=== PATIENT | female | born 1970 | race Two or more races ===

== ENCOUNTER 2023-01-24 11:03 | Emergency (ER) | payer OTHER ==
[~2023-01-24] VITALS: Ht 160 cm; Wt 85.7 kg
[2023-01-24] MEDS ORDERED: NORVASC5 MG PO (11:25)
[2023-01-24] MEDS ORDERED: HORIZANT300 MG PO (11:25)
[2023-01-24] MEDS ORDERED: PROAIR RESPICL90 MCG IH (14:27)
[2023-01-24] MEDS ORDERED: ALLERGY RELIE15.8 ML NASAL (14:27)
[2023-01-24] MEDS ORDERED: ZITHROMAX500 MG PO (14:27)
[2023-01-24] MEDS ORDERED: SINGULAIR10 MG PO (14:27)
== END 2023-01-24 14:39 | disposition home or self-care (01) ==
LOC: ER 11:03
DX: B34.9 Viral infection, unspecified (principal); Z88.0 Allergy status to penicillin; Z88.6 Allergy status to analgesic agent; Z87.09 Personal history of other diseases of the respiratory system; Z20.822 Contact with and (suspected) exposure to COVID-19